=== PATIENT | male | born 1960 | race American Indian/Alaskan Native ===

== ENCOUNTER 2017-11-03 15:30 | Outpatient (CLI) | payer BC ==
[2017-11-03 16:16] LABS: Blood Urea Nitrogen 10 mg/dL (9-20)
--- NOTE | 2017-11-04 09:58 | Magnetic Resonance Report ---
MR CERVICAL SPINE WITH AND WITHOUT CONTRAST HISTORY: Cervicalgia. TECHNIQUE: Multisequence, multiplanar MRI before and after 15 cc of Multihance intravenously. COMPARISON: None. FINDINGS: There is mild reversal of the normal cervical lordosis. There is normal height and alignment of the vertebral bodies otherwise. No evidence for fracture or bone lesion. Moderate diffuse disc desiccation is noted. Minimal facet arthropathy. 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 C2-3: No significant abnormality. C3-4: No significant abnormality. C4-5: A small to medium midline disc protrusion abuts the anterior surface of the cord. The central canal measures 8 mm in AP dimension at this level. C5-6: A moderate to large left paracentral disc protrusion is identified which exerts mass effect on the left anterior spinal cord. There is moderate central canal knowing measuring 6.4 mm in AP dimension. Bilateral neural foraminal narrowing is estimated at 50%. C6-7: A moderate to large left paracentral disc protrusion is identified which exerts mass effect on the left anterior spinal cord. There is moderate central canal narrowing measuring 6.5 mm in AP dimension. Moderate to severe bilateral neural foraminal narrowing is estimated at 50-75%. C7-T1: No significant abnormality. No abnormal enhancement following IV gadolinium. IMPRESSION: Mild to moderate multilevel cervical spondylosis. Reversal of the normal cervical lordosis. Multilevel disc protrusions as outlined above. C5-6 and C6-7 are most affected with mass effect on the spinal cord and bilateral neural foraminal narrowing. See above.
== END 2017-11-03 15:31 | disposition home or self-care (01) ==
LOC: MRI 15:30
PROVIDERS: ATTEND Orthopaedic Surgery
DX: M50.222 Other cervical disc displacement at C5-C6 level (principal); M50.223 Other cervical disc displacement at C6-C7 level; M47.892 Other spondylosis, cervical region; M12.88 Other specific arthropathies, not elsewhere classified, other specified site
CPT/HCPCS: 36415; 72156; 82565; 84520; A9577

== ENCOUNTER 2019-02-02 10:20 | Outpatient (CLI) | payer BC ==
[2019-02-02 10:54] LABS: Basophils # (Auto) 0.1 K/mm3 (0.0-0.1); Basophils % (Auto) 0.9 % (0.0-1.8); Eosinophils # (Auto) 0.1 K/mm3 (0.0-0.4); Eosinophils % (Auto) 2.5 % (0.0-4.3); Hematocrit 44.4 % (35.5-45.6); Hemoglobin 15.1 gm/dl (11.8-15.2); Lymphocytes # (Auto) 2.2 K/mm3 (1.2-5.4); Mean Corpuscular HGB Conc 34 % (32-34); Mean Corpuscular Volume 84 fl (84-94); Monocytes # (Auto) 0.6 K/mm3 (0.0-0.8); Monocytes % (Auto) 10.5 % (0.0-7.3); Platelet Count 261 K/mm3 (140-440); Red Blood Count 5.27 M/mm3 (3.65-5.03)
[2019-02-02 11:22] LABS: Alanine Aminotransferase 23 units/L (7-56); Albumin 4.4 g/dL (3.9-5); BUN/Creatinine Ratio 12; Blood Urea Nitrogen 15 mg/dL (9-20); Calcium 9.3 mg/dL (8.4-10.2); Hemolysis Index 4; LDL Cholesterol,Direct 157 mg/dL (50-130)
[2019-02-02 11:33] LABS: Chol/HDL Ratio 6.19 %; HDL Cholesterol 36 mg/dL (40-59)
[2019-02-05 12:37] LABS: Vitamin D, 25-OH, D2 <4 ng/mL
== END 2019-02-02 10:21 | disposition home or self-care (01) ==
LOC: LAB 10:20
PROVIDERS: ATTEND Internal Medicine
DX: Z12.11 Encounter for screening for malignant neoplasm of colon (principal); Z12.5 Encounter for screening for malignant neoplasm of prostate; I10 Essential (primary) hypertension
CPT/HCPCS: 36415; 80053; 80061; 82270; 82306; 84153; 84443; 85025

== ENCOUNTER 2019-08-10 09:45 | Outpatient (CLI) | payer BC ==
[2019-08-10 10:43] LABS: Alanine Aminotransferase 18 units/L (7-56); Albumin 4.3 g/dL (3.9-5); BUN/Creatinine Ratio 10; Blood Urea Nitrogen 13 mg/dL (9-20); Calcium 9.4 mg/dL (8.4-10.2); Chol/HDL Ratio 6.65 %; HDL Cholesterol 35 mg/dL (40-59); Hemolysis Index 21; LDL Cholesterol,Direct 170 mg/dL (50-130)
== END 2019-08-10 09:46 | disposition home or self-care (01) ==
LOC: LAB 09:45
PROVIDERS: ATTEND Internal Medicine
DX: I10 Essential (primary) hypertension (principal)
CPT/HCPCS: 36415; 80053; 80061